=== PATIENT | female | born 2000 | race Caucasian/White ===

== ENCOUNTER 2020-10-31 09:20 | Inpatient (IN) | payer BC ==
[~2020-10-31] VITALS: Ht 162.6 cm; Wt 58.2 kg
[2020-10-31] MEDS ORDERED: ZOLPIDEM TARTRATE 10 MG TABLET PO PRN (10:00)
[2020-10-31] MEDS ORDERED: LORazepam 2 MG TABLET PO PRN (10:00)
[2020-10-31] MEDS ORDERED: HALOPERIDOL 5 MG TABLET PO PRN (10:00)
[2020-10-31 12:25] VITALS: BP 109/57
[2020-10-31 16:10] VITALS: BP 105/75
[2020-10-31] MEDS ORDERED: INFLUENZA VIRUS VACCINE QVS 2020-21 (6MO+)/PF 60 MCG/0.5 ML SYRINGE IM ONE (19:45)
[2020-11-01 05:56] VITALS: BP 110/68
[2020-11-01 07:58] LABS: BASOPHILS % (AUTO) 1.9 % (0.0-2.0); EOSINOPHILS % (AUTO) 1.3 % (1.0-6.0); HEMATOCRIT 35.5 % (36-46); HEMOGLOBIN 12.1 g/dL (12.0-16.0); LYMPHOCYTES # (AUTO) 2.1 K/uL (1.0-4.8); LYMPHOCYTES % (AUTO) 35.4 % (22.0-44.0); MEAN CORPUSCULAR HEMOGLOBIN 28.7 pg (26.0-34.0); MEAN CORPUSCULAR HGB CONC 34.1 G/dL (31.0-37.0); MEAN CORPUSCULAR VOLUME 84 fL (80-100); MONOCYTES # (AUTO) 0.5 K/uL (0.1-1.0); MONOCYTES % (AUTO) 8.5 % (2.0-9.0); NEUTROPHILS # (AUTO) 3.2 K/uL (1.8-7.7); NEUTROPHILS % (AUTO) 52.9 % (40.0-70.0); PLATELET COUNT (AUTO) 283 K/uL (150-450); RED BLOOD CELL COUNT(AUTO) 4.21 MIL/uL (4.00-5.20); RED CELL DISTRIBUTION WIDTH 12.5 % (11.5-14.5)
[2020-11-01 08:07] LABS: HEMOGLOBIN A1C 4.9 % (3.8-5.6)
[2020-11-01 08:21] LABS: ALANINE AMINOTRANSFERASE 23 U/L (12-78); ALBUMIN 4.1 g/dL (3.4-5.0); ALKALINE PHOSPHATASE 58 U/L (46-116); ANION GAP 10 mmol/L (8-16); ASPARTATE AMINOTRANSFERASE 14 U/L (15-37); BILIRUBIN,TOTAL 0.4 mg/dL (0.1-1.0); CALCIUM, TOTAL 9.1 mg/dL (8.8-10.5); CARBON DIOXIDE 26 mmol/L (22-29); CHLORIDE 103 mmol/L (98-107); CHOL/HDL RATIO 2.7 (3.9-5.7); CHOLESTEROL 186 mg/dL (131-200); CREATININE 0.51 mg/dL (0.60-1.30); GLOMERULAR FILTR. RATE CALC > 60 mL/min (>60); GLUCOSE,RANDOM 83 mg/dL (70-110); HDL CHOLESTEROL 70 mg/dL (40-60); LDL CHOL (CALC.) 97 mg/dL (0-130); POTASSIUM 3.7 mmol/L (3.5-5.1); SODIUM SERUM 139 mmol/L (136-145); TOTAL PROTEIN, SERUM 7.9 g/dL (6.4-8.2); TRIGLYCERIDES 93 mg/dL (15-150); UREA NITROGEN, BLOOD 11 mg/dL (7-18)
[2020-11-01] MEDS ORDERED: MAG HYDROX/AL HYDROX/SIMETH ES 30 ML SUSPENSION UDCUP PO PRN (08:45)
[2020-11-01] MEDS ORDERED: ACETAMINOPHEN 325 MG TABLET PO PRN (08:45)
[2020-11-01] MEDS ORDERED: NICOTINE 14 MG/24 HOUR PATCH TD PRN (08:45)
[2020-11-01] MEDS ORDERED: IBUPROFEN 400 MG TABLET PO PRN (08:45)
[2020-11-01] MEDS ORDERED: ALBUTEROL SULFATE HFA 90 MCG/PUFF 8 GM INHALER IH PRN (08:45)
[2020-11-01] MEDS ORDERED: MAGNESIUM HYDROXIDE SUSPENSION 30 ML UDCUP PO PRN (08:45)
[2020-11-01] MEDS ORDERED: PETROLATUM,WHITE 28 GM JELLY TP PRN (08:45)
[2020-11-01] MEDS ORDERED: LOPERAMIDE HCL 2 MG CAPSULE PO PRN (08:45)
[2020-11-01] MEDS ORDERED: GuaiFENesin/D-METHORPHAN [SUGAR-FREE] 200-20MG/10 ML SYRUP UDCUP PO PRN (08:45)
[2020-11-01] MEDS ORDERED: ONDANSETRON HCL 4 MG TABLET PO PRN (08:45)
[2020-11-01] MEDS ORDERED: CloNIDine HCL 0.1 MG TABLET PO PRN (08:45)
[2020-11-01] MEDS ORDERED: DOCUSATE SODIUM 100 MG CAPSULE PO PRN (08:45)
[2020-11-01 09:34] VITALS: BP 96/83
[2020-11-01] MEDS: CITALOPRAM HYDROBROMIDE 10 MG TABLET PO SCH (12:30)
[2020-11-01 16:10] VITALS: BP 100/71
[2020-11-02 00:27] VITALS: BP 103/62
[2020-11-02 08:12] VITALS: BP 105/62
[2020-11-02] MEDS: CITALOPRAM HYDROBROMIDE 10 MG TABLET PO SCH (09:00)
[2020-11-02 16:12] VITALS: BP 100/61
[2020-11-03 00:29] VITALS: BP 104/66
[2020-11-03] MEDS ORDERED: CITA10TA99 PO (07:45)
[2020-11-03 08:43] VITALS: BP 110/73
== END 2020-11-03 09:55 | disposition home or self-care (01) | DRG 881 ==
LOC: B2S 12:06
PROVIDERS: ADMIT Psychiatry & Neurology Psychiatry; ATTEND Psychiatry & Neurology Psychiatry
DX: F32.9 Major depressive disorder, single episode, unspecified (principal); R45.851 Suicidal ideations; E44.0 Moderate protein-calorie malnutrition; I95.9 Hypotension, unspecified; R10.13 Epigastric pain; Z68.22 Body mass index [BMI] 22.0-22.9, adult; Z88.0 Allergy status to penicillin
CPT/HCPCS: 83036; 87081